=== PATIENT | male | born 1995 | race Caucasian/White ===

== ENCOUNTER 2018-07-03 19:41 | Emergency (ER) | payer OTHER ==
[2018-07-03] MEDS: ONDANSETRON (ODT) 4 MG TAB ODT (20:32)
== END 2018-07-03 22:01 | disposition home or self-care (01) ==
LOC: E/R 19:41
DX: T43.211A Poisoning by selective serotonin and norepinephrine reuptake inhibitors, accidental (unintentional), initial encounter (principal); R07.89 Other chest pain; R11.0 Nausea
CPT/HCPCS: 82962; 99283-25